=== PATIENT | male | born 1970 | race Caucasian/White ===

== ENCOUNTER 2020-05-17 07:32 | Outpatient (REF) | payer OTHER, SELFPAY ==
[2020-05-17 08:29] LABS: MANUAL DIFF FLAG NO
[2020-05-17 08:34] LABS: Basophils Percent Auto 0.3 % (0-2); Eosinophils Absolute Auto 0.2 X10*3/uL (0.0-0.4); Eosinophils Percent Auto 2.3 % (0-4); Hematocrit 48.4 % (42-52); Hemoglobin 16.3 g/dl (14.0-18.0); Imm Gran Abs Auto 0.02 X10*3/uL (0.00-0.03); Imm Gran Pct Auto 0.3 % (0.0-0.4); Lymphocytes Absolute Auto 1.6 X10*3/uL (1.2-4.9); Lymphocytes Percent Auto 22.1 % (20-40); Mean Corpuscular HGB Conc 33.7 g/dl (31.0-36.0); Mean Corpuscular Hemoglobin 32.9 pg (27.0-33.0); Mean Corpuscular Volume 97.8 fL (80-98); Mean Platelet Volume 12.9 fL (9.4-12.4); Monocytes Absolute Auto 0.8 X10*3/uL (0.1-1.2); Monocytes Percent Auto 10.9 % (2-11); Neutrophils Absolute Auto 4.5 X10*3/uL (2.0-8.3); Neutrophils Percent Auto 64.1 % (45-73); Platelet Count 135 X10*3/uL (160-400); Red Blood Count 4.95 X10*6/uL (4.60-5.80); Red Cell Distribution Width 12.5 % (11.0-16.0); White Blood Count 7.1 X10*3/uL (4.8-10.8)
[2020-05-17 09:04] LABS: Alanine Aminotransferase 14 U/L (0-40); Albumin Level 4.2 g/dL (3.5-5.0); Alkaline Phosphatase 59 U/L (39-117); Anion Gap 13 (12-20); Aspartate Amino Transferase 11 U/L (5-37); Bilirubin Total 0.5 mg/dL (0.0-1.0); Blood Urea Nitrogen 15 mg/dL (9-16); Calcium 9.1 mg/dL (8.4-10.2); Carbon Dioxide 27 mmol/L (22-29); Chloride 107 mmol/L (96-108); Cholesterol 245 mg/dL; Estimated Glomerular Filt Rate > 60; Glucose Fasting 89 mg/dL (60-99); HDL Cholesterol 38 mg/dL; LDL Cholesterol Calculated 183 mg/dl; Potassium 4.6 mmol/l (3.3-5.1); Sodium 142 mmol/L (135-145); Triglycerides 120 mg/dL
== END 2020-05-17 07:33 | disposition home or self-care (01) ==
LOC: HO.LAB 07:32
PROVIDERS: PCP Internal Medicine; Visit Provider Internal Medicine
DX: E78.5 Hyperlipidemia, unspecified (principal)
CPT/HCPCS: 36415; 80053; 80061; 85025

== ENCOUNTER 2020-06-24 21:52 | Emergency (ER) | payer OTHER, SELFPAY ==
--- NOTE | 2020-06-24 | ECG_ITS ---
Test Reason : CHEST PAIN Blood Pressure : / mmHG Vent. Rate : 096 BPM Atrial Rate : 096 BPM P-R Int : 138 ms QRS Dur : 084 ms QT Int : 340 ms P-R-T Axes : 055 -41 018 degrees QTc Int : 429 ms Normal sinus rhythm Left axis deviation Abnormal ECG No previous ECGs available Referred By: Maribeth Garay Electronically Signed By:Toby Tolbert
--- NOTE | ~2020-06-24 | XR_ITS ---
EXAMINATION: XR CHEST CLINICAL INFORMATION: Chest pain. COMPARISON: None TECHNIQUE: Frontal view of the chest was obtained. FINDINGS: The lungs are clear. The cardiomediastinal silhouette is normal in size. There is no pleural effusion or pneumothorax. No acute osseous abnormality. XR/XR chest 1V IMPRESSION: No acute cardiopulmonary findings.
--- NOTE | 2020-06-24 21:55 | ED_ITS ---
HPI - Chest Pain General Chief Complaint: Chest Pain Stated Complaint: Chest Pain Time Seen by Provider: 06/24/20 21:54 Source: patient History of Present Illness HPI narrative: This is a 50-year-old male who presents with sharp left anterior chest pain that has been going on throughout the day, waxing and waning, denies radiation into the back, but states that the last episode occurred approximately 1 hour ago and was associated with radiation into the left arm. Otherwise, he denies association with deep inspiration. This is not been associated with any headache, dizziness, shortness of breath, palpitations, nausea, but he states he did become anxious and was sweaty. Otherwise, patient's past medical history is significant for having had a DVT (provoke) approximately 5 years ago. Patient states he drank alcohol last night but otherwise denies smoking or drug use. No recent history of long car rides or plane trips, hemoptysis, personal history of cancer, recent surgery or bed bound state, calf pain or calf swelling. Related Data Allergies Allergy/AdvReac Type Severity Reaction Status Date / Time No Known Allergies Allergy Verified 06/24/20 22:04 Review of Systems Review of Systems: Pertinent positives and negatives as stated in HPI 10 point review systems is otherwise negative. PMFSH Past Medical History Source: nursing notes reviewed Medical History Hyperlipidemia Social History Social History Advance Directives: No Advance Directives Information Provided: Yes Physical Exam Vital Signs: Vital Signs: Last Vital Signs Temp 98.6 F 06/24/20 22:00 Pulse 82 06/24/20 22:00 Resp 15 06/24/20 22:00 BP 147/84 H 06/24/20 22:00 Pulse Ox 95 06/24/20 22:00 Body Mass Index 31.3 VITAL SIGNS: Reviewed. GENERAL: Well developed, well nourished, in no acute distress. HEAD: Normocephalic/atraumatic, EYES: PERRLA, EOMI OROPHARYNX: no oral lesions noted, posterior pharynx clear NECK: Supple, no adenopathy LUNGS: Normal breath sounds. No adventitious sounds or accessory muscle use. SpO2<95> CARDIOVASCULAR: Regular rate and rhythm without noted murmurs, no JVD or lower extremity edema. ABDOMEN: Soft, non-tender, non-distended with bowel sounds. MUSCULOSKELETAL: No tenderness, deformities, or effusions noted on gross inspection. EXTREMITIES: No cyanosis, clubbing or edema. SKIN: Inspection of the skin reveals no rashes NEUROLOGIC: Alert and oriented x 4. Course Course Course Narrative: This is a 50-year-old male with history and clinical presentation suggestive of gastritis, pancreatitis, musculoskeletal, but doubt cardio pulmonary etiology. All investigations were reviewed and there are no acute findings to better explain patient's presenting symptoms other than possible muscle strain or costochondritis. Although there is a slight bump in the high sensitivity troponin patient has decided that he does not wish to wait for the 2nd troponin and otherwise HEART Score-3. D-dimer is negative as well as no evidence on chest x-ray for acute findings. All results and findings were discussed the patient bedside and he was required to sign out AMA as 2nd troponin was deemed appropriate and recommended him to follow-up with his primary care provider and/or manager operational as appropriate after discussing with his primary care provider. He remains currently asymptomatic. MDM - Chest Pain Lab Data Result diagrams: 06/24/20 22:17 06/24/20 22:17 Labs: Lab Results 06/24/20 06/24/20 06/24/20 Range/Units 22:17 22:17 22:17 WBC 9.5 (4.8-10.8) X10*3/uL RBC 4.87 (4.60-5.80) X10*6/uL Hgb 16.0 (14.0-18.0) g/dl Hct 46.5 (42-52) % MCV 95.5 (80-98) fL MCH 32.9 (27.0-33.0) pg MCHC 34.4 (31.0-36.0) g/dl RDW 12.6 (11.0-16.0) % Plt Count 157 L (160-400) X10*3/uL MPV 11.9 (9.4-12.4) fL Immature Gran % (Auto) 0.2 (0.0-0.4) % Neut % (Auto) 61.9 (45-73) % Lymph % (Auto) 24.6 (20-40) % [place] % (Auto) 11.5 H (2-11) % Eos % (Auto) 1.6 (0-4) % Baso % (Auto) 0.2 (0-2) % Lymph # (Auto) 2.3 (1.2-4.9) X10*3/uL [place] # (Auto) 1.1 (0.1-1.2) X10*3/uL Eos # (Auto) 0.2 (0.0-0.4) X10*3/uL Baso # (Auto) 0.0 (0.0-0.2) X10*3/uL Abs Immat Gran (auto) 0.02 (0.00-0.03) X10*3/uL Absolute Neuts (auto) 5.9 (2.0-8.3) X10*3/uL Absolute Nucleated RBC 0.000 (0.0-0.012) X10*3/uL Nucleated RBC % (auto) 0.0 (0.0-0.2) /100WBC D-Dimer NG/ML Sodium 139 (135-145) mmol/L Potassium 4.1 (3.3-5.1) mmol/L Chloride 106 (96-108) mmol/L Carbon Dioxide 24 (22-29) mmol/L Anion Gap 13 (12-20) BUN 21 H (9-16) mg/dL Creatinine 1.28 (0.5-1.4) mg/dL Estim Creat Clear Calc 73.3 Estimated GFR 59 Random Glucose 97 (60-115) mg/dL Calcium 8.6 (8.4-10.2) mg/dL Total Bilirubin 0.8 (0.0-1.0) mg/dL AST 19 (5-37) U/L ALT 23 (0-40) U/L Alkaline Phosphatase 69 (39-117) U/L Troponin I High Sens 4.2 (<3.5-35.0) ng/L Total Protein 7.2 (6.5-8.0) g/dL Albumin 4.2 (3.5-5.0) g/dL Lipase (8-78) U/L 06/24/20 06/24/20 Range/Units 22:17 22:17 WBC (4.8-10.8) X10*3/uL RBC (4.60-5.80) X10*6/uL Hgb (14.0-18.0) g/dl Hct (42-52) % MCV (80-98) fL MCH (27.0-33.0) pg MCHC (31.0-36.0) g/dl RDW (11.0-16.0) % Plt Count (160-400) X10*3/uL MPV (9.4-12.4) fL Immature Gran % (Auto) (0.0-0.4) % Neut % (Auto) (45-73) % Lymph % (Auto) (20-40) % [place] % (Auto) (2-11) % Eos % (Auto) (0-4) % Baso % (Auto) (0-2) % Lymph # (Auto) (1.2-4.9) X10*3/uL [place] # (Auto) (0.1-1.2) X10*3/uL Eos # (Auto) (0.0-0.4) X10*3/uL Baso # (Auto) (0.0-0.2) X10*3/uL Abs Immat Gran (auto) (0.00-0.03) X10*3/uL Absolute Neuts (auto) (2.0-8.3) X10*3/uL Absolute Nucleated RBC (0.0-0.012) X10*3/uL Nucleated RBC % (auto) (0.0-0.2) /100WBC D-Dimer < 200 NG/ML Sodium (135-145) mmol/L Potassium (3.3-5.1) mmol/L Chloride (96-108) mmol/L Carbon Dioxide (22-29) mmol/L Anion Gap (12-20) BUN (9-16) mg/dL Creatinine (0.5-1.4) mg/dL Estim Creat Clear Calc Estimated GFR Random Glucose (60-115) mg/dL Calcium (8.4-10.2) mg/dL Total Bilirubin (0.0-1.0) mg/dL AST (5-37) U/L ALT (0-40) U/L Alkaline Phosphatase (39-117) U/L Troponin I High Sens (<3.5-35.0) ng/L Total Protein (6.5-8.0) g/dL Albumin (3.5-5.0) g/dL Lipase 23 (8-78) U/L ECG Data ECG #1: Attestation: I personally reviewed and interpreted this ECG as follows: Prior ECG tracings: not available for review Interpretation: Normal sinus rhythm, HR-96, no evidence of acute ischemia, [place]/QRS/QTC are within normal limits. Discharge Plan Discharge Clinical Impression: Atypical chest pain Patient Disposition: Home, Self-Care Instructions: Chest Pain (ED), Chest Wall Pain (ED) Additional Instructions: Please do not hesitate to return to the emergency department should you experience acute worsening of your symptoms especially if associated with any shortness of breath, dizziness, nausea, sweating. Follow-up with the primary care provider in 2-3 days. Referrals: Erlin Mishra MD [Primary Care Provider] - 2 days (Re-evaluation and management after seen in the emergency department for left-sided chest pain.) Stand Alone Forms: Against Medical Advice
[2020-06-24 22:00] VITALS: BP 147/84; BP 147/87; PULSE 82; PULSE 88; RESP 15; RESP 16; TEMP 37; TEMP 37.1; O2SAT 95; BMI 31.3
[2020-06-24 22:23] LABS: MANUAL DIFF FLAG NO
[2020-06-24 22:28] LABS: Basophils Percent Auto 0.2 % (0-2); Eosinophils Absolute Auto 0.2 X10*3/uL (0.0-0.4); Eosinophils Percent Auto 1.6 % (0-4); Hematocrit 46.5 % (42-52); Imm Gran Abs Auto 0.02 X10*3/uL (0.00-0.03); Imm Gran Pct Auto 0.2 % (0.0-0.4); Lymphocytes Absolute Auto 2.3 X10*3/uL (1.2-4.9); Lymphocytes Percent Auto 24.6 % (20-40); Mean Corpuscular HGB Conc 34.4 g/dl (31.0-36.0); Mean Corpuscular Hemoglobin 32.9 pg (27.0-33.0); Mean Corpuscular Volume 95.5 fL (80-98); Mean Platelet Volume 11.9 fL (9.4-12.4); Monocytes Absolute Auto 1.1 X10*3/uL (0.1-1.2); Monocytes Percent Auto 11.5 % (2-11); Neutrophils Absolute Auto 5.9 X10*3/uL (2.0-8.3); Neutrophils Percent Auto 61.9 % (45-73); Platelet Count 157 X10*3/uL (160-400); Red Blood Count 4.87 X10*6/uL (4.60-5.80); Red Cell Distribution Width 12.6 % (11.0-16.0); White Blood Count 9.5 X10*3/uL (4.8-10.8)
[2020-06-24 22:46] LABS: D Dimer < 200 NG/ML
[2020-06-24 22:47] LABS: Lipase 23 U/L (8-78)
[2020-06-24 22:51] LABS: Alanine Aminotransferase 23 U/L (0-40); Albumin Level 4.2 g/dL (3.5-5.0); Alkaline Phosphatase 69 U/L (39-117); Anion Gap 13 (12-20); Aspartate Amino Transferase 19 U/L (5-37); Bilirubin Total 0.8 mg/dL (0.0-1.0); Blood Urea Nitrogen 21 mg/dL (9-16); Calcium 8.6 mg/dL (8.4-10.2); Carbon Dioxide 24 mmol/L (22-29); Chloride 106 mmol/L (96-108); Creatinine Clr Calc Pharmacy 73.3; Estimated Glomerular Filt Rate 59; Glucose Random 97 mg/dL (60-115); Potassium 4.1 mmol/L (3.3-5.1); Sodium 139 mmol/L (135-145); Total Protein 7.2 g/dL (6.5-8.0)
[2020-06-24 23:07] LABS: Troponin-I High Sensitivity 4.2 ng/L (<3.5-35.0)
== END 2020-06-25 00:24 | disposition home or self-care (01) ==
PROVIDERS: Emergency Provider Student in an Organized Health Care Education/Training Program; PCP Internal Medicine
DX: R07.9 Chest pain, unspecified (principal); M54.5 Low back pain; M79.602 Pain in left arm; Z79.899 Other long term (current) drug therapy
CPT/HCPCS: 36415; 71045; 80053; 83690; 84484; 85025; 85379; 93005; 99283

== ENCOUNTER 2020-11-02 10:28 | Day surgery (SDC) | payer OTHER, SELFPAY ==
[2020-11-02 10:37] VITALS: BMI 31.3
[2020-11-02 10:43] VITALS: BP 133/87; PULSE 74; RESP 16; TEMP 36.6; O2SAT 97
--- NOTE | 2020-11-02 11:14 | HO.ANESPROP2 ---
HPI - Anesthesia Eval Consult details Narrative: 50 year old patient for colonoscopy PMFSH Active Problems Active Problems: All Active Problems (Updated 05/28/20 @ 10:59 by Erlin Mishra MD) Hyperlipidemia (Acute) Allergic reaction (Acute) Past Medical History Medical History (Updated 11/02/20 @ 11:27 by Sarah Cassidy) Hyperlipidemia Family History Family History Father Gastric cancer Mother Heart disease Family/Other Colon cancer Family history of problems with anesthesia: No Surgical History Surgical History (Updated 11/02/20 @ 11:28 by Sarah Cassidy) No pertinent past surgical history S/P colonoscopy History of Problems with Anesthesia: No Social History Social History (Updated 11/02/20 @ 11:25 by Sarah Cassidy) Alcohol intake: current Alcohol intake frequency: does not drink Patient Tobacco Use Status: Former Tobacco user Quit Date: Has a script for Chantix but does not use Second Hand Smoke Exposure: No Use of substances other than those prescribed or required for medical reasons: No Are you DNR?: No Advance Directives: No Advance Directives Information Provided: Yes Advance Directives on File: No Poor oral hygiene: No Meds Allergies Allergy/AdvReac Type Severity Reaction Status Date / Time No Known Allergies Allergy Verified 05/28/20 10:27 [No Known Allergies*] Active Medications: Current Medications Generic Name Dose Route Start Last Admin Trade Name Freq PRN Reason Stop Dose Admin Lactated Ringer's 1,000 mls @ 100 mls/hr 11/02/20 11:15 Lr IVCONT .Q10H [facility] Home Medications Medication Instructions Recorded Confirmed Last Taken Type varenicline 1 mg tablet 1 mg PO BID 02/21/20 05/28/20 Unknown History Exam Exam Date and Time: November 02, 2020 1114 Height,Weight and Vital Signs: Height 5 ft 7 in Weight 90.718 kg Last Vital Signs Temp 97.9 F 11/02/20 10:43 Pulse 74 11/02/20 10:43 Resp 16 11/02/20 10:43 BP 133/87 11/02/20 10:43 Pulse Ox 97 11/02/20 10:43 Airway Mallampati Class: II TM Dist: >3cm Neck ROM: Full Heart: RRR Lungs: CTAB Assessment and Plan Assessment Anesthesia Assessment: Anesthesia Plan Discussed and Chart Reviewed Final Anesthetic Review NPO: Yes ASA Class: II Final Preanesthetic Review: No Changes in Pt Med Stat, Meds/Allgs Chart Reviewed, Consent Obtained/Reviewed and Anes Risks/Benef Reviewed Patient Risk: Low Procedure Risk: Low Assessment/Block/Sedation in SS: Assess/Block/Sedation-SS Anesthetic Plan Anesthetic Plan: MAC: Disposition: Standard PACU
--- NOTE | 2020-11-02 11:43 | MHC.SHP ---
Pre-Procedural Eval Section A Date of Service: 11/02/20 The patient is an INPATIENT: No Changes since office visit: No Cold of Flu in the past 2 weeks, No New Medical Problems, No Changes in Medication and No Patient answered all questions The History & Physical has been completed within 30 days and I have reviewed it.: No Section B Chief Complaint: screening Allergies: Allergies Allergy/AdvReac Type Severity Reaction Status Date / Time No Known Allergies Allergy Verified 05/28/20 10:27 [No Known Allergies*] Plan I have reviewed the history and physical and performed a pertinent physical examination on my patient. No changes have occurred unless specified.
--- NOTE | 2020-11-02 12:07 | PM.OP ---
Brief Operative Note Date of Service: 11/02/20 Pre-op diagnosis: screening Post-op diagnosis: same (colon polyps) Procedure: colonosocpy Surgeon: Boris Chand Anesthesia: MAC Was an [employer] Court Judge used for this Procedure?: No Estimated blood loss (mL): 0 Pathology: other (polyps x2) Condition: stable Disposition: PACU
[2020-11-02 12:11] VITALS: BP 102/55; PULSE 85; RESP 16; TEMP 36.3; O2SAT 96
[2020-11-02 12:26] VITALS: BP 114/74; PULSE 77; RESP 17; O2SAT 93
--- NOTE | 2020-11-02 14:51 | OP_ITS ---
SURGEON: Boris Chand MD INDICATIONS: Colon cancer screening and family history of colon cancer. PREOPERATIVE DIAGNOSIS: POSTOPERATIVE DIAGNOSIS: PROCEDURE PERFORMED: Colonoscopy to the terminal ileum with snare polypectomy. ESTIMATED BLOOD LOSS: COMPLICATIONS: ANESTHESIA: Monitored anesthesia care. ASSISTANTS: SPECIMENS: DESCRIPTION OF PROCEDURE: History and physical was performed. The risks and benefits of the procedure were explained to the patient, and informed consent was obtained. The patient was placed in left lateral decubitus position. A digital rectal exam was performed and it was found to be normal. The Olympus pediatric video colonoscope was introduced into the rectum and advanced to the cecum without difficulty. The cecum was identified by transillumination, palpation, and identification of ileocecal valve. Examination was performed. The scope was removed. He tolerated the procedure well and was taken to the recovery area in stable condition. FINDINGS: The terminal ileum was normal. The visualized colonic mucosa was within normal limits without evidence of masses or ulcers. Two polyps were identified, both measured approximately 7 mm and removed with a snare. These were located at 40 cm and 50 cm. No other polyps were identified. The quality of the prep was good. Retroflexed examination was normal. IMPRESSION: Colon polyps. RECOMMENDATIONS: Follow up the biopsy results. MD SAMMI Lamas/STEVE / [id number]
== END 2020-11-02 13:21 | disposition home or self-care (01) ==
PROVIDERS: PCP Internal Medicine; Visit Provider Internal Medicine Gastroenterology
PROC: 0DJD8ZZ Inspection of Lower Intestinal Tract, Via Natural or Artificial Opening Endoscopic (ICD-10-PCS; CPT 45378; principal; 2020-11-02 11:20)
DX: Z12.11 Encounter for screening for malignant neoplasm of colon (principal); Z80.0 Family history of malignant neoplasm of digestive organs; D12.5 Benign neoplasm of sigmoid colon; E78.5 Hyperlipidemia, unspecified; G47.30 Sleep apnea, unspecified; Z79.1 Long term (current) use of non-steroidal anti-inflammatories (NSAID); Z79.899 Other long term (current) drug therapy; Z87.891 Personal history of nicotine dependence
CPT/HCPCS: 45385; 88305

== ENCOUNTER 2021-05-07 14:40 | Outpatient (REF) | payer OTHER, SELFPAY | END 2021-05-07 14:41 | disposition home or self-care (01) | LOC: HO.HMGCLDS 14:40 | PROVIDERS: Visit Provider Internal Medicine | DX: Z20.822 Contact with and (suspected) exposure to COVID-19 (principal) | CPT/HCPCS: C9803; U0003; U0005 ==

== ENCOUNTER → 2021-08-07 12:46 | Outpatient (BNVA) | payer OTHER, SELFPAY | PROVIDERS: PCP Internal Medicine; Referring Provider Internal Medicine; Visit Provider Internal Medicine | DX: R03.0 Elevated blood-pressure reading, without diagnosis of hypertension (principal); E66.9 Obesity, unspecified; Z82.49 Family history of ischemic heart disease and other diseases of the circulatory system | CPT/HCPCS: 93005 ==

== ENCOUNTER → 2021-09-30 08:09 | Outpatient (BNVA) | payer OTHER, SELFPAY | PROVIDERS: PCP Internal Medicine; Referring Provider Internal Medicine; Visit Provider Internal Medicine | DX: E66.9 Obesity, unspecified (principal) ==

== ENCOUNTER 2021-10-01 20:36 | Emergency (ER) | payer OTHER, SELFPAY ==
--- NOTE | ~2021-10-01 | XR_ITS ---
EXAMINATION: XR HAND, LEFT CLINICAL INFORMATION: Laceration to the hand. Concern for foreign body. COMPARISON: None TECHNIQUE: PA, lateral, and oblique views of the left hand. FINDINGS: There is air in the soft tissues of the hand. Most of the air is within the dorsum of the hand extending into the interosseous spaces between the metacarpals. No radiopaque foreign body. No fracture or dislocation. XR/XR hand LT min 3V IMPRESSION: Air in the soft tissues of the hand but no radiopaque foreign body.
[2021-10-01 21:51] VITALS: BP 143/86; PULSE 66; RESP 16; TEMP 36.5; O2SAT 95; BMI 32.5
[2021-10-01] MEDS: Ibuprofen 600 MG TABLET PO (22:05)
--- NOTE | 2021-10-01 23:15 | ED.WOUNDLAC ---
HPI - Wound/Laceration General Chief Complaint: Wound/Laceration Stated Complaint: Hand Lac Time Seen by Provider: 10/01/21 22:52 Source: patient Mode of arrival: ambulatory Limitations: no limitations History of Present Illness HPI narrative: 51-year-old male no significant medical history presents to the emergency department complaints of a laceration to the dorsal aspect of left hand that occurred at approximately 19:00 he tells me that he has a sane this injury while [place] washing, he tells me he was power washing and then also the power wash went into his hand. He complains of 7/10 left hand pain. He does not complain of pain with range of motion to wrist or fingers. Denies numbness or tingling. He tells me he does not recall the last time he had a tetanus shot. Patient is right-hand dominant. Onset (ago): hour(s) (4) Location: other (hand ) Place: home Patient tetanus UTD: No Context: accidental Associated symptoms: pain Treatments prior to arrival: bandage Related Data Previous Rx's Medication Instructions Recorded lorazepam 0.5 mg tablet 0.5 mg PO TID PRN #90 tab 05/29/21 rosuvastatin 20 mg tablet (Crestor) 20 mg PO DAILY #90 tab 09/30/21 amoxicillin 875 mg-potassium 1 tab PO BID 7 Days #14 tab 10/01/21 clavulanate 125 mg tablet Allergies Allergy/AdvReac Type Severity Reaction Status Date / Time No Known Allergies Allergy Verified 09/30/21 08:20 [No Known Allergies*] Review of Systems Review of Systems: Constitutional : No Fever, No Chills, Cardiovascular : No Chest Pain, No SOB Respiratory : No Dyspnea Gastrointestinal : No abdominal pain Musculoskeletal : No Joint Swelling Skin : No rash, positive skin laceration Neuro : No Weakness, No Numbness Psych : No SI/HI Yes all other systems are reviewed and are negative [facility] Past Medical History Attestation statement: The following information was validated with the patient. Source: old records reviewed and nursing notes reviewed Medical History Atherosclerotic cardiovascular disease Hyperlipidemia Hyperlipidemia Obesity Sleep apnea Surgical History No pertinent past surgical history S/P colonoscopy Family History Family History Father Gastric cancer Heart attack Colon cancer Mother Heart disease Brother Heart attack Social History Social History Housing: House Alcohol intake: current Alcohol intake frequency: does not drink Patient Tobacco Use Status: Former Tobacco user Quit Date: Has a script for Chantix but does not use e-Cigarette/Vaping Use: Never Used Second Hand Smoke Exposure: No Current occupational status: employed Cognitive needs: No Hearing needs: No Vision needs: No Physical Exam Vital Signs: Vital Signs: Last Vital Signs Temp 97.7 F 10/01/21 21:51 Pulse 66 10/01/21 21:51 Resp 16 10/01/21 21:51 BP 143/86 H 10/01/21 21:51 Pulse Ox 95 10/01/21 21:51 BMI result Body Mass Index 32.5 Vital signs stable Appearance: Alert.? Oriented X3.? No acute distress.? Head: Normocephalic, atraumatic, no step-offs or deformities Eyes: Pupils equal, round and reactive to light.?? Neck: Normal inspection.? Neck supple.? CVS: Normal heart rate and rhythm.? Pulses normal.? Respiratory: No respiratory distress.? Breath sounds normal.? Abdomen: Soft and nontender.? Skin: Skin warm and dry.? Normal skin color.? Normal skin turgor.?+ irregularly shaped laceration to the dorsal aspect of left hand. Extremities: No lower extremity edema.? No calf ttp. 5/5 strength to bilateral upper and lower extremities 2+ radial pulses equal bilateral, no wrist drop, patient able to make a fist bilaterally, full range of motion to all fingers, capillary refill less than 2 seconds equal bilateral to all upper extremity digits. Sensory and motor intact. Neuro: Oriented X 3.? No motor deficit.? No sensory deficit. CN 2-12 intact Course Reevaluation(s) Reevaluation #1: Successfully placed 250 sutures to the dorsal aspect of the hand. X-ray of the left hand with air in the soft tissue of the hand but no radiopaque foreign bodies. I will have patient follow-up with orthopedics. Advised him to return with new or worsening symptoms outlined he is on his discharge comfortable with discharge home with p.o. antibiotics. 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 Not up-to-date on tetanus shot. Physical examination significant for an irregularly shaped laceration to the dorsal aspect of left hand, images in chart. Neurovascularly intact, normal capillary refill 2+ radial pulses equal bilateral. Full range of motion to all digits, wrist. Sensory and motor intact. Able to make fist bilaterally. Plan at this time is imaging, and suturing of the laceration. Medical Records Attestation: I reviewed the patient's medical records. Lab Data Attestation: I reviewed the patient's lab results. Procedures Laceration Laceration 1: Site: upper extremity Side (If applicable): left Size (cm): 4 Description: linear Depth: simple, single layer Local Anesthetic: lidocaine 1% Amount of anesthesia used (mL): 5 Pre-repair: wound explored, irrigated extensively and deep structures intact Skin layer closed with: vicryl Size (cm): 5-0 Number of sutures: 2 Technique: simple, interrupted Critical Care Time Critical Care Time Critical Care Time: No Discharge Plan Discharge Clinical Impression: Laceration Patient Disposition: Home, Self-Care Additional Instructions: Take your medications as prescribed. If you were prescribed antibiotics today, it is important that you take your medication to their entirety, do not skip any doses, do not finish them early. Follow-up with your primary care provider this week. Follow-up with orthopedics as needed. Return to the emergency department with new or worsening symptoms. Such as fevers, chills, chest pain, shortness of breath, nausea, vomiting, dizziness, headache, vision changes, lethargy, worsening redness or swelling or discharge from the area, numbness, tingling, inability to make a fist. In case of emergency call 911 Return in 7-10 days for suture removal. XR/XR hand LT min 3V IMPRESSION: Air in the soft tissues of the hand but no radiopaque foreign body. Prescriptions: New amoxicillin-pot clavulanate 875-125 mg tablet 1 tab PO BID 7 Days Qty: 14 0RF No Action lorazepam 0.5 mg tablet 0.5 mg PO TID PRN (Reason: anxiety) Qty: 90 5RF rosuvastatin [Crestor] 20 mg tablet 20 mg PO DAILY Qty: 90 3RF Referrals: [facility] [place]Provider Group] - 1 week Erlin Mishra MD [Primary Care Provider] - 2 days Stand Alone Forms: Work/School Release
[2021-10-01] MEDS: Diphth,Pertus(ACell),Tet Adult 0.5 ML SYRINGE IM (23:28)
[2021-10-01] MEDS: Amoxicillin/Potassium Clav 875 MG TABLET PO (23:28)
[2021-10-01] MEDS: Lidocaine HCl 2 % MPF 5 ML VIAL SUBCUT (23:32)
== END 2021-10-02 00:14 | disposition home or self-care (01) ==
LOC: HO.ED 23:54
PROVIDERS: Emergency Provider Emergency Medicine; PCP Internal Medicine
DX: S61.412A Laceration without foreign body of left hand, initial encounter (principal); S60.512A Abrasion of left hand, initial encounter; Y29.XXXA Contact with blunt object, undetermined intent, initial encounter; Y93.9 Activity, unspecified; Y92.9 Unspecified place or not applicable; Y99.9 Unspecified external cause status; Z87.891 Personal history of nicotine dependence
CPT/HCPCS: 12002; 73130; 90471; 90715; 99282; 99284

== ENCOUNTER → 2021-10-15 14:26 | Outpatient (BNVA) | payer OTHER, SELFPAY | PROVIDERS: PCP Internal Medicine; Visit Provider Physician Assistant | DX: S61.412A Laceration without foreign body of left hand, initial encounter (principal) ==

== ENCOUNTER → 2021-10-30 09:29 | Outpatient (REF) | payer OTHER, SELFPAY ==
--- NOTE | ~2021-10-30 | NM_ITS ---
Exercise Myocardial perfusion study Indication: Elevated coronary calcium score suggestion of atherosclerotic heart disease to evaluate for myocardial ischemia Technique: The patient was brought in for an exercise perfusion study on 10/30/2021. Patient performed exercise as per Tony protocol and was injected 30 mCi of sestamibi was given intravenously one target HR was achieved. Images were obtained using the SPECT gamma camera interlaced with the gating device. Images were obtained in supine position. Resting perfusion study was performed on 10/31/2021. Patient was administered 30 mCi of sestamibi intravenously at rest. Images were then obtained in supine position. Images obtained with and without CT attenuation. Total DLP 99 mGy-cm. Images were processed with the software and compared side to side in short axis, horizontal long axis and vertical long axis views. Findings: The stress perfusion study showed non attenuated images show moderately reduced uptake in the basal inferior and thinning of the mid and apical inferior wall of the LV myocardium. Is also thinning of inferolateral wall of the LV myocardium. Attenuation corrected images show mildly reduced uptake in the apex of the LV myocardium.. The gated study shows normal LV systolic function with calculated LVEF of 55%. LV cavity is mildly dilated in size. The gated study shows normal systolic wall thickening and contraction of all segments. There is no transient ischemic dilation. Resting study shows non attenuated images show some thinning of the basal inferior wall of the LV myocardium. Otherwise normal uptake of radiotracer in all segments of LV myocardium. Attenuation corrected images show mildly reduced uptake in the apex of the LV myocardium. Gating at rest reveals normal systolic wall motion with ejection fraction at 63%. The findings are consistent with no clear reversible defect on attenuated corrected images. Non attenuated images show ischemic defect of the basal inferior wall. This could be due to attenuation artifact. NM/NM cardiolite stress test Impression: 1. Likely normal myocardial perfusion 2. Gated LVEF is 55% 3. Transient ischemic dilatation not present Stress EKG is negative for ischemia
--- NOTE | 2021-10-30 09:33 | CA_ITS ---
Acquisition Time: 2021-10-30 09:38:25 Total Exercise Time: 00:10:00 Test Indications: CAD Medications: SEE CHART Protocol: SELAM Max HR: 155 BPM 92% of Pred: 168 BPM Max BP: 210/088 mmHG Max Work Load: 11.6 METS Exercise stress test with exercise 10 min of Selam protocol, achieving 92% MPHR, without anginal symptoms, without arrythmia, with hypertensive response to exercise with max [employer] 210/88, without EKG changes meeting criteria for ischemia. In recovery his BP returned to baseline. Nuclear images pending. Test reviewed with Dr Lagunas Referred By: Johnson Chin Overread By: AKASH JAVIER
== END ==
LOC: HO.CARD 09:29
PROVIDERS: PCP Internal Medicine; Visit Provider Internal Medicine
DX: I25.10 Atherosclerotic heart disease of native coronary artery without angina pectoris (principal)
CPT/HCPCS: 78452; 93017; A9500

== ENCOUNTER → 2022-07-07 14:05 | Outpatient (BNVA) | payer OTHER, SELFPAY | PROVIDERS: PCP Internal Medicine; Referring Provider Internal Medicine; Visit Provider Internal Medicine | DX: I25.10 Atherosclerotic heart disease of native coronary artery without angina pectoris (principal); R03.0 Elevated blood-pressure reading, without diagnosis of hypertension; E66.9 Obesity, unspecified; E78.49 Other hyperlipidemia | CPT/HCPCS: 93005 ==

== ENCOUNTER 2022-09-02 07:14 | Outpatient (REF) | payer OTHER, SELFPAY ==
--- NOTE | ~2022-09-02 | XR_ITS ---
EXAMINATION: XR SHOULDERS, BILATERAL CLINICAL INFORMATION: Bilateral shoulder pain. COMPARISON: 01/30/2015 and 01/04/2015. TECHNIQUE: 4 views of the right shoulder and 3 views of the left shoulder. FINDINGS: Right Shoulder: There is no evidence of acute fracture or dislocation of the right shoulder. Glenohumeral joint demonstrates some mild spurring without joint space narrowing. There is calcific tendinitis present about the greater tuberosity. There is some mild degenerative change involving the right acromioclavicular joint. No widening of the coracoclavicular space is seen. Left Shoulder: There is no evidence of acute fracture or dislocation of the left shoulder. Minimal spurring is seen about the inferior aspect of the glenohumeral joint. Calcific tendinitis is present. No widening of the coracoclavicular space is seen. XR/XR shoulder RT min 2V IMPRESSION: Bilateral calcific tendinitis of the shoulders.
--- NOTE | ~2022-09-02 | XR_ITS ---
EXAMINATION: XR SHOULDERS, BILATERAL CLINICAL INFORMATION: Bilateral shoulder pain. COMPARISON: 01/30/2015 and 01/04/2015. TECHNIQUE: 4 views of the right shoulder and 3 views of the left shoulder. FINDINGS: Right Shoulder: There is no evidence of acute fracture or dislocation of the right shoulder. Glenohumeral joint demonstrates some mild spurring without joint space narrowing. There is calcific tendinitis present about the greater tuberosity. There is some mild degenerative change involving the right acromioclavicular joint. No widening of the coracoclavicular space is seen. Left Shoulder: There is no evidence of acute fracture or dislocation of the left shoulder. Minimal spurring is seen about the inferior aspect of the glenohumeral joint. Calcific tendinitis is present. No widening of the coracoclavicular space is seen. XR/XR shoulder LT min 2V IMPRESSION: Bilateral calcific tendinitis of the shoulders.
== END 2022-09-02 07:15 | disposition home or self-care (01) ==
LOC: HO.HOSX 07:14
PROVIDERS: Visit Provider Physician Assistant
DX: M75.31 Calcific tendinitis of right shoulder (principal); M75.32 Calcific tendinitis of left shoulder
CPT/HCPCS: 20610; 73030; J1040

== ENCOUNTER 2023-02-03 07:00 | Outpatient (RCR) | payer OTHER, SELFPAY ==
--- NOTE | 2023-01-13 12:49 | MHC.PT.EP ---
[facility] [place] Office [place] Office [place] Office [address] Connor Wong [address] [phone] F: [phone] F: [phone] F: [phone] F: [phone] Physical Therapy Plan of Care Date of Evaluation: 01/13/23 Date of Surgery: Diagnosis: CALCIFIC TENDONITIS ROSARIO SH Assessment: 52 YO MALE REF TO PT W ROSARIO CALCIFIC TENDINITIS ROSARIO SH- HE HAS A H/O PRIOR Rt BICEP INJURY. THE Pt IS RIGHT HAND DOMINANT AND IS LIMITED W SLEEPING (IN SL), LIFTING OBJECTS, AND PUSHING TASKS. OBJECTIVELY, THE Pt HAS DECR POSTURAL AWARENESS (TIGHT PECT), ROSARIO POST RC/ SCAP MM WEAKNESS, LIMITED AROM ROSARIO SH IR AND ABD; (+) ROSARIO NEER'S/ SPEEDS TESTS, AND (+) SOFT TISSUE IRRIT ROSARIO ANT GH. HE HAS MODIFIED HIS ACTIVITY LEVEL DUE TO HIS ROSARIO SH PAIN. THE Pt WOULD BENEFIT FROM PT TO ADDRESS THE ABOVE FINDINGS AND DEV A HEP SELF-SX MGMT PGM TO IMPROVE POSTURE. Frequency and Duration: The patient will be seen 2 x WK x 5 WKS Short Term Goals: *Pt INDEP W SELF-CORRECT POSTURE TO REDUCE ROSARIO ANT SH PAIN *DECR SH PAIN TO 2-3/10 W ADLs *ACTIVATE POST RC/ SCAP MM INCR END AROM ROSARIO SH (FE, IR POST, ABD) *(-) NEER'S/ SPEED'S TESTS ROSARIO SH Shelter Goals: *Pt ABLE TO SLEEP COMFORTABLY W/O SH PAIN INTERRUPTIONS *ROSARIO SH AND SCAP STRENGTH INCR BY 1/2 TO 1 GRADE *Pt INDEP W PROGR HEP AND SELF-SX MGMT TECHN ADDRESSING SOFT TISSUE TENSION WELL POST RC/ SCAP STRENGTH *Pt RESUME REG ADLs / EXER EVIDENT W Pt'S SPADI SCORE IMPROVEMENT BY 8-10 POINTS (AT EVAL 80/130) Treatment Plan: Modalities to reduce pain, spasms and effusion. Manual therapy to restore motion and function. Therapeutic exercise to improve strength and flexibility. Neuromuscular re-education for posture and balance. Therapeutic activities to return to functional activities of daily living. Electronically signed by: LUIS FITCH,PT Please sign and return to therapist. Thank you for your referral.
--- NOTE | 2023-03-09 08:51 | MHC.PT.DC ---
[facility] [place] Office [place] Office [place] Office [address] Connor Wong [address] [phone] F: [phone] F: [phone] F: [phone] F: [phone] Physical Therapy Discharge Report Diagnosis: CALCIFIC TENDONITIS ROSARIO SH Date of Surgery: Date of Evaluation: 01/13/23 Date of Discharge: 03/09/23 Treatments to Date: 5 Cancellations to Date: 2 No Shows to Date: 0 Discharge Status: Improved Function Patient Elected to Stop Discharge Summary: THE Pt BENEFITTED FROM SOFT TISSUE WORK AND POSTURAL EDUC TO REDUCE STRESSS TO HIS CERVICAL REGION AND ADDRESS HIS SH SXS-> WE DEV A HEP TO ACTIVATE HIS POST RC AND SCAPULAR MM WHILE EASING CERVICAL SXS. THE Pt DID NOT MEET ALL OF HIS PT GOALS AND A REASSESSMENT WAS NOT PERF A HE CANC HIS LAST FEW PT APPTS. Electronically signed by: LUIS FITCH,PT Please sign and return to therapist. Thank you for your referral.
== END 2023-03-09 08:51 | disposition home or self-care (01) ==
LOC: HO.PT 07:00
PROVIDERS: PCP Internal Medicine; Visit Provider Physician Assistant
DX: M75.32 Calcific tendinitis of left shoulder (principal); M75.31 Calcific tendinitis of right shoulder
CPT/HCPCS: 97035; 97110; 97140; 97162; 97530

== ENCOUNTER 2023-04-17 06:33 | Outpatient (REF) | payer OTHER, SELFPAY ==
[2023-04-17 08:42] LABS: Alanine Aminotransferase 42 U/L (0-40); Albumin Level 4.3 g/dL (3.5-5.0); Alkaline Phosphatase 65 U/L (39-117); Aspartate Amino Transferase 22 U/L (5-37); Bilirubin Direct 0.1 mg/dL (0.0-0.5); Bilirubin Total 0.4 mg/dL (0.0-1.0); Cholesterol 229 mg/dL (<200); HDL Cholesterol 42 mg/dL (>40); LDL Cholesterol Calculated 160 mg/dL (<100); Total Protein 7.6 g/dL (6.5-8.0); Triglycerides 135 mg/dL (<150)
== END 2023-04-17 06:34 | disposition home or self-care (01) ==
LOC: HO.LAB 06:33
PROVIDERS: PCP Internal Medicine; Visit Provider Internal Medicine
DX: I25.10 Atherosclerotic heart disease of native coronary artery without angina pectoris (principal)
CPT/HCPCS: 36415; 80061; 80076

== ENCOUNTER 2023-04-22 10:42 | Outpatient (AMB) | payer OTHER, SELFPAY ==
[2023-04-22 10:52] VITALS: BP 144/82; PULSE 66; BMI 33.1
--- NOTE | 2023-04-22 10:52 | MHC.OFFVIS ---
Intake Vital Signs 04/22/23 10:52 Height 5 ft 7 in Weight 211 lb 10.3 oz BMI 33.1 BP 144/82 H Blood Pressure Location Lt brachial Position Sitting Pulse 66 Intake Visit Reasons: 6 month F/U Intake Note: 6 month follow up Medical Massage Therapist Required: No Allergies No Known Allergies [No Known Allergies*] Allergy (Verified 04/22/23 10:53) Medication List - Last Reconciled 04/22/23 by Johnson Chin MD lorazepam 0.5 mg PO TID PRN rosuvastatin 20 mg PO DAILY HPI HPI Comments History of Present Illness Details Richy returns for follow-up. Due to strong family history of coronary disease, he underwent calcium scoring CT scan which was positive. From cardiac, no new issues. Doing fine. [facility] Medical History Atherosclerotic cardiovascular disease Hyperlipidemia Hyperlipidemia Obesity Sleep apnea Surgical History No pertinent past surgical history S/P colonoscopy Family History Father Gastric cancer Heart attack Colon cancer Mother Heart disease Brother Heart attack Social History Housing: House Alcohol intake: current Alcohol intake frequency: a few times a month Patient Tobacco Use Status: Former Tobacco user Quit Date: Has a script for Chantix but does not use e-Cigarette/Vaping Use: Never Used Second Hand Smoke Exposure: No service: No Current occupational status: employed 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, [employer] Cognitive needs: No Hearing needs: No Vision needs: Yes (glasses) Review of Systems Const Denies weakness ENT Denies dizziness Card Denies chest pain, Denies chest pain with activity, Denies syncope, Denies rapid heart rate, Denies pedal edema, Denies edema, Denies leg edema, Denies lightheadedness, Denies palpitations, Denies dyspnea, Denies dyspnea on exertion and Denies orthopnea Resp Denies cough, Denies dyspnea and Denies dyspnea on exertion GI Denies hematochezia and Denies change in stool character Musc Denies abnormal gait, Denies muscle cramps, Denies muscle weakness, Denies numbness, Denies radiating pain into limb and Denies tingling Neuro Denies abnormal gait, Denies dizziness, Denies syncope, Denies numbness, Denies tingling and Denies weakness Endo Denies palpitations Physical Exam Vital Signs: Last Vital Signs Pulse 66 04/22/23 10:52 BP 144/82 H 04/22/23 10:52 BMI result Body Mass Index 33.1 Const General: comfortable and no acute distress Orientation/consciousness: patient oriented x3 HEENT Other: Unremarkable Head: Yes normal to inspection Neck Neck: Yes normal visual inspection Chest Chest palpation & inspection: normal inspection of the chest Resp Auscultation: clear to auscultation bilaterally Cardio Palpation: normal PMI Heart sounds: S1 normal heart sound present, S2 normal heart sound present, no gallops, no murmurs and no rubs GI Palpation (GI): Soft to palpation Back/Spine/Pelvis Other: unremarkable Skin General skin exam: no rashes or lesions noted Neuro General: patient oriented x3 Extrem General: Yes normal to inspection Psych Mental Status: mental status grossly normal Assessment & Plan Assessment & Plan (1) Atherosclerotic cardiovascular disease: Code(s): I25.10 - Atherosclerotic heart disease of council coronary artery without angina pectoris (2) Essential hypertension: Code(s): I10 - Essential (primary) hypertension (3) Hyperlipidemia: Code(s): E78.5 - Hyperlipidemia, unspecified Qualifiers: Hyperlipidemia type: other hyperlipidemia Qualified Code(s): E78.49 - Other hyperlipidemia (4) Obesity (BMI 30.0-34.9): Code(s): E66.9 - Obesity, unspecified Plan Cardiac testing reviewed. Calcium scoring CT - Total score is 292, and calcific plaque is seen in circumflex most predominantly, but also seen in the LAD and right coronary artery. In the exercise stress test, he was able to exercise for 10 minutes on Tony protocol and reached 92% of max predicted heart rate. No angina or EKG evidence of ischemia. He had a hypertensive blood pressure response. Perfusion imaging unremarkable. Overall, evidence of coronary disease but stable. Continue appropriate risk factor modification. Blood pressure is running high. We can start him on some amlodipine 5 mg daily. Advised him to do home blood pressures. With regard to cholesterol levels there is still high in spite of the statins. We can go up on the dose. We can recheck in about 3 months. If still high, then consider Zetia. Beyond that, will need Repatha or Praluent. We discussed about these options. Strongly encouraged weight loss. Follow-up in 6 months. Orders: Orders Lipid Panel 3 Months E78.5 - Hyperlipidemia, unspecified Liver Panel 3 Months I25.10 - Atherosclerotic heart disease of council coronary artery without angina pectoris Medications: New rosuvastatin (Crestor) 40 mg PO DAILY 90 tabs 3RF amlodipine 5 mg PO DAILY 90 tabs 3RF Coding Level of Care Code Est Pt Level 4 (35317) Diagnoses Atherosclerotic cardiovascular disease I25.10 Essential hypertension I10 Other hyperlipidemia E78.49 Hyperlipidemia type: other hyperlipidemia Obesity (BMI 30.0-34.9) E66.9
== END 2023-04-22 11:27 | disposition home or self-care (01) ==
PROVIDERS: PCP Internal Medicine; Visit Provider Internal Medicine
DX: I25.10 Atherosclerotic heart disease of native coronary artery without angina pectoris (principal); I10 Essential (primary) hypertension; E78.49 Other hyperlipidemia; E66.9 Obesity, unspecified
CPT/HCPCS: 99214

== ENCOUNTER → 2023-04-22 10:42 | Outpatient (BNVA) | payer OTHER, SELFPAY | PROVIDERS: PCP Internal Medicine; Visit Provider Internal Medicine ==

== ENCOUNTER 2024-04-05 10:38 | Outpatient (AMB) | payer OTHER, SELFPAY ==
[2024-04-05 10:49] VITALS: BP 138/76; BMI 33.5
--- NOTE | 2024-04-05 10:49 | MHC.PC.OV ---
Vital Signs 04/05/24 10:49 Height 5 ft 7 in Weight 214 lb BMI 33.5 BP 138/76 Blood Pressure Location Lt brachial Position Sitting Intake Visit Reasons: inflammation, redness, and itchiness on shoulders Academic Affairs Coordinator Required: No Accompanied by: Self / Same As Patient Allergies No Known Allergies [No Known Allergies*] Allergy (Verified 04/05/24 10:52) Medication List - Last Reconciled 04/05/24 by Erlin Mishra MD amlodipine 5 mg PO DAILY lorazepam 0.5 mg PO TID PRN rosuvastatin (Crestor) 40 mg PO DAILY Tobacco use date assessed: 04/05/24 Dental Screening Dental Screen Date: 04/05/24 Did you have a dental visit in the last 12 months?: Yes Did you have a dental problem in the last 6 months where you did not have access to dental care?: No Was dental information given to patient?: Patient has dentist HPI inflammation, redness, and itchiness on shoulders HPI Details pruritic rash on upper arms for a few months PFSH Medical History Atherosclerotic cardiovascular disease Hyperlipidemia Hyperlipidemia Obesity Sleep apnea Surgical History S/P colonoscopy No pertinent past surgical history Family History Father Gastric cancer Heart attack Colon cancer Mother Heart disease Brother Heart attack Social History Housing: House Alcohol intake: current Alcohol intake frequency: a few times a month Patient Tobacco Use Status: Former Tobacco user e-Cigarette/Vaping Use: Never Used Second Hand Smoke Exposure: No service: No Current occupational status: employed 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 1. Little interest or pleasure in doing things: not at all 2. Feeling down, depressed, or hopeless: not at all 3. Trouble falling or staying asleep, or sleeping too much: not at all 4. Feeling tired or having little energy: not at all 5. Poor appetite or overeating: not at all 6. Feeling bad about yourself - or that you are a failure or have let yourself or your family down: not at all 7. Trouble concentrating on things, such as reading the newspaper or watching television: not at all 8. Moving or speaking so slowly that other people could have noticed. Or the opposite - being so fidgety or restless that you have been moving around a lot more than usual: not at all 9. Thoughts that you would be better off or of hurting yourself in some way: not at all Total score: 0 Depression Screening Interpretation: Negative Depression Screening Done: Yes Source: Developed by Drs. Nemesio Melvin, Nicole Trent, Can Tong and colleagues, with an educational ike from [employer] [place]. Thrive Questionnaire Date Thrive assessed: 04/05/24 I am a: Patient What is your living situation today?: I have a steady place to live Within the past 12 months, did the food you bought not last and you didn't have the money to get more?: Never true Within the past 12 months, did you worry whether your food would run out before you got money to buy more?: Never true Do you have trouble paying for medicines?: No Do you have trouble getting transportation to medical appointments?: No Do you have trouble paying your heating and electricity bill?: No Do you have trouble taking care of your child, family member or friend?: No Do you have trouble with day-to-day activities such as bathing, preparing meals, shopping, managing finances, etc.?: No Are you currently unemployed and looking for a job?: No Are you interested in more education?: No Currently or been in a relationship where the following occur: No concerns reported THRIVE Score: 0 AUDIT C Alcohol Use Questionnaire (AUDIT-C) 1. How often do you have a drink containing alcohol?: Never Total Score: 0 APOLINAR-7 AMB Questionnaire APOLINAR-7 Date APOLINAR - 7 assessed: 04/05/24 Feeling nervous, anxious, or on edge: 0 = Not at all Not being able to stop or control worryin = Not at all Worrying too much about different things: 0 = Not at all Trouble relaxin = Not at all Being so restless that it is hard to sit still: 0 = Not at all Becoming easily annoyed or irritable: 0 = Not at all Feeling afraid as if something awful might happen: 0 = Not at all Total APOLINAR-7 score (0-4 normal; 5-9 mild; 10-14 moderate; 15-21 severe): 0 Source: Developed by Drs. Nemesio Melvin, Nicole Trent, Can Tong and colleagues, with an educational ike from [employer] [place]. Review of Systems Const Denies chills, Denies headache(s) and Denies weight loss ENT Denies headache(s) Card Denies chest pain, Denies syncope, Denies irregular heart rhythm and Denies dyspnea Resp Denies chest congestion, Denies cough and Denies dyspnea GI Denies abdominal pain, Denies change in stool character, Denies nausea and Denies vomiting Musc Denies deformity and Denies joint swelling Neuro Denies syncope and Denies headache(s) Physical exam (Primary Care) Vital Signs: Last Vital Signs BP 138/76 04/05/24 10:49 BMI result Body Mass Index 33.5 Tobacco/Smoking Status: Tobacco use Status Tobacco use date assessed 04/05/24 04/05/24 10:54 Patient Tobacco Use Status Former Tobacco user 04/05/24 10:49 e-Cigarette/Vaping Use Never Used 04/05/24 10:49 PHQ-9: PHQ-9 Score PHQ-9: Total score 0 04/05/24 10:49 Depression Screening Interpretation: Negative Thrive Assessment: Date of Thrive Assessment Date Thrive assessed 04/05/24 04/05/24 10:49 Currently or been in a relationship where the following occur: No concerns reported Const General: cooperative, comfortable, no acute distress and alert Neck Neck: Yes no lymphadenopathy Thyroid: Thyroid normal Resp Effort & Inspection: normal respiratory effort Auscultation: clear to auscultation bilaterally Percussion: percussion normal Cardio Jugular venous distension: no JVD Palpation: normal PMI Rate: regular rate Rhythm: regular rhythm Heart sounds: S1 normal heart sound present and S2 normal heart sound present GI Inspection: Yes normal to inspection Palpation (GI): No hepatosplenomegaly present Skin Other: contact dermatitis on upper arms Extrem General: Yes no clubbing, cyanosis or edema Office Procedures Flu Questionnaire Does the patient have a severe egg allergy?: No Immunizations Fluarix Triv [id number] (PF) 45 mcg (15 mcg x 3)/0.5 mL IM syringe Performing Provider: Erlin Mishra MD [facility] Documented (not given) by: FRANNIE Olvera on 04/05/24 10:55 Reason Not Given: Patient Refused Coding Level of Care Code Est Pt Level 3 (33837) Diagnoses Contact dermatitis L25.9 Assessment & Plan Assessment & Plan (1) Contact dermatitis: Code(s): L25.9 - Unspecified contact dermatitis, unspecified cause Category: Medical Plan: rx sent Orders: Orders Influenza [id number] Immunization Today Z23 - Encounter for immunization Medications: New triamcinolone acetonide 0.5% 1 appl topical TID 15 grams 3RF methylprednisolone (Medrol (Frank)) PO PER PKG DIR 21 ea 0RF
== END 2024-04-05 11:01 | disposition home or self-care (01) ==
PROVIDERS: PCP Internal Medicine; Visit Provider Internal Medicine
DX: L25.9 Unspecified contact dermatitis, unspecified cause (principal); Z23 Encounter for immunization

== ENCOUNTER → 2024-04-05 10:38 | Outpatient (BNVA) | payer OTHER, SELFPAY | PROVIDERS: PCP Internal Medicine; Visit Provider Internal Medicine | DX: L25.9 Unspecified contact dermatitis, unspecified cause (principal); Z28.21 Immunization not carried out because of patient refusal | CPT/HCPCS: 90471; 96127 ==

== ENCOUNTER 2024-09-05 06:19 | Outpatient (REF) | payer OTHER, SELFPAY ==
--- OUTSIDE RECORDS SUMMARY | 2024-09-05 06:23 | XMS_ITS | Patient Health Record ---
Author Organization [facility] Address [address] [place] [address] Care Team Providers Care Fire Management Specialist Name Role Phone GIUSEPPE ALMANZA Unavailable Allergies No Known Allergies Reason For Referral Reason eval and treat Diagnosis 1 Rash (R21) Referral Organization [facility] melissa Referring Provider First Name STEVIE Referring Provider Last Name RAIZA Referring Provider Speciality Nurse Prac deborah Referred Provider Specialty Dermatology Referral Priority Routine Referral Appointment Date 02/18/2024 Medications Medication SIG (Take, Route, Frequency, Duration) Notes Start Date End Date Status Clobetasol Propionate 0.05 % 1 application Externally Twice a day for 10 days 02/18/2024 Active Rosuvastatin Calcium 40 MG TAKE 1 TABLET BY MOUTH EVERY DAY Oral for 90 Days Active amLODIPine Besylate 5 MG TAKE 1 TABLET B Y MOUTH EVERY DAY Oral for 90 Days Active Social History Tobacco Use: Social History Observation Description Date Details (start date - stop date) Former Smoker NA - NA Tobacco Control (Standard) Question Answer Notes Tobacco use: Former smoker Vital Signs Height 67 in 02/18/2024 Patient Reported High Blood Pressure Patient Reported Normal Temperature Weight 207 lbs 02/18/2024 Patient Reported High Blood Pressure Patient Reported Normal Temperature BMI 32.42 kg/m2 02/18/2024 Patient Reported High Blood Pressure Patient Reported Normal Temperature Encounters Encounter Location Date Provider Diagnosis [facility] [address] [place] [address] 02/18/2024 GIUSEPPE ALMANZA Rash R21 Assessments Encounter Date Diagnosis (ICD Code) Assessment Notes Treatment Notes Treatment Clinical Notes Section Notes 02/18/2024 Rash (ICD-10 - R21) TREATMENT PLAN This patient reports a rash. The rash is from an unknown etiology. Etiologies include but are not limited to contact dermatitis, virus, bacterial infection, psoriasis, eczema, medication, etc. We do not have all detailed information on recent new contacts, allergens, soaps, detergents, clothes, pets, travels, etc. The symptoms are nonspecific and this form of medical care cannot provide definitive diagnostic evaluation for the symptoms. We will offer temporary treatment until the patient can be evaluated in-person. 1. We can empirically offer elevated potency topical steroids. We can also offer oral steroids if desired (medrol, prednisone). Be aware if your symptom is only local, topical steroids will offer less total body side effects (hunger, anxiety, weight gain, sleeplessness, etc). Can also sheepskin pickler over the counter topical hydrocortisone 1% (if not allergic). Take diphenhydramine 25mg as needed for rash/itch. 2. Please see your PCP or a spool winder to evaluate the rash. 02/18/2024 Other Follow the treatment plan as indicated by the provider. Take any medications as prescribed. If you have any questions about your prescription, ask the pharmacist. Call 911 anytime you think you may need emergency care. For example, call if:You have severe trouble breathing.You have a seizure.Call your doctor now or seek immediate medical care if:You have trouble breathing.You have a fever with a stiff neck or a severe headache.You have pain or pressure in your chest or belly.You have a fever or cough that returns after getting better.You feel very sleepy, dizzy, or confused.You are not urinating.You have severe muscle pain.You have severe weakness, or you are unsteady.You have medical conditions that are getting worse.Watch closely for changes in your health, and be sure to contact your doctor if:You do not get better as expected.You are having a problem with your medicine. Risks, benefits, and side effects of medications (if any) discussed with patient, who agreed to the treatment plan.Patient's condition was stable at the end of the televisit. Follow-up instructions provided, including:Scheduling next appointmentMonitoring symptomsAdhering to treatment planContacting clinic with concernsPatient understood and agreed to comply with the follow-up plan. Plan Of Treatment No Information Insurance Providers Payer Name Payer Address Payer Phone Subscriber Number Group Number Insured Name Patient Relationship to Insured Coverage Start Date Coverage End Date [facility] [employer] [address] [address] [place] [phone] [id number] Richy Yao Self - patient is the insured Medical (General) History Medical History History ICD Code cholesterol HTN
--- OUTSIDE RECORDS SUMMARY | 2024-09-05 06:23 | XMS_ITS ---
Author Organization [facility] Address [address] [place] [address] Care Team Providers Care Chief Technician X Ray Name Role Phone GIUSEPPE ALMANZA Unavailable Allergies No Known Allergies Reason For Referral Reason eval and treat Diagnosis 1 Rash (R21) Referral Organization [facility] melissa Referring Provider First Name STEVIE Referring Provider Last Name RAIZA Referring Provider Speciality Nurse Prac deborah Referred Provider Specialty Dermatology Referral Priority Routine Referral Appointment Date 02/18/2024 REASON FOR VISIT Skin / Rash / Acne, Patient requesting service from promotional campaign other_insurance Medications Medication SIG (Take, Route, Frequency, Duration) [...] smoker Vital Signs Height 67 in 02/18/2024 Weight 207 lbs 02/18/2024 BMI 32.42 kg/m2 02/18/2024 Patient Reported High Blood PressurePatient Reported Normal Temperature Encounters Encounter Location Date Provider Diagnosis [facility] [address] [place] [address] 02/18/2024 GIUSEPPE ALMANZA Rash R21 Assessments Encounter [...] anxiety, weight gain, sleeplessness, etc). Can also seed cone picker over the counter topical hydrocortisone 1% (if not allergic). Take diphenhydramine 25mg as needed for rash/itch. 2. Please see your PCP or a mechanical technical service specialist to evaluate the rash. 02/18/2024 Other Follow [...] with the follow-up plan. Plan Of Treatment Medication Medication Name Sig Start Date Stop Date Notes Clobetasol Propionate 0.05 % 1 applicati on Externally Twice a day for 10 days 02/18/2024 Treatment Notes Assessment Notes Rash TREATMENT PLAN This patient reports a rash. [...] anxiety, weight gain, sleeplessness, etc). Can also seed cone picker over the counter topical hydrocortisone 1% (if not allergic). Take diphenhydramine 25mg as needed for rash/itch. 2. Please see your PCP or a mechanical technical service specialist to evaluate the rash. Other Follow the treatment plan as indicated [...] are having a problem with your medicine. Referrals Referral Date Details 02/18/2024 02/18/2024, eval and treat Next Appt Details Follow Up: PCP, Reason: Progress Notes * Ta RAIOB:06/09 (53 yo M)Acc No.[id number]:02/18/2024 Patient:?Richy RAI Provider:?GIUSEPPE ALAMNZA MD :1970???Age:53 Y???Sex:Male Silvestre e:02/18/2024 Phone: Address:[address] [place] [address] SEAN [id number] Subjective: * Chief Complaints: * ???Skin / Rash / AcnePatient requesting service from promotional campaign other_insurance * HPI: ???TeleVisit Consent:?Patient's identification was confirmed and they were instructed that this visit is based on visual, audio information in addition to previous medical notes and diagnostics. As well it relies on the patient for information related to their physical well being, diagnosis and treatment. The patient acknowledges that they are not being recorded today, and they do not have permission to record this visit either. Patient verbalized understanding to all of the above. VIDEO VISIT CONDUCTED OF A 53 Y/O MALE REPORTS A RASH ON ARMS AND SHOULDER FEELS ITCHY X SEVERAL MONTHS. * ROS:?All Other Systems:?Review of Systems (ROS)?See HPI for details.? * Medical History:? * Surgical History:?Denies Pas t Surgical History * Hospitalization/Major Diagno stic Procedure:?Denies Past Hospitalization * Family History:? Heart Disease: Parent. * Social History:?Tobacco Use:?Tobacco Control (Standard)?Tobacco use:?Former smoker.?Drugs/Alcohol:?Do you drink alcohol?: Yes More Than 6 Drinks Monthly Social. * Medications:?TakingamLODIPin e Besylate 5 MG Tablet TAKE 1 TABLET BY MOUTH EVERY DAY Oral Rosuvastatin Calcium 40 MG Tablet TAKE 1 TABLET BY MOUTH EVERY DAY Oral Medication List reviewed and reconciled with the patientTaking amLODIPine Besylate 5 MG Tablet TAKE 1 TABLET BY MOUTH EVERY DAY Oral Taking Rosuvastatin Calcium 40 MG Tablet TAKE 1 TABLET BY MOUTH EVERY DAY Oral Medication List reviewed and reconciled with the patient * Allergies:?N.K.D.A.no[Allerg ies Verified] Objective: * Vitals:?Ht: 67 in, Wt:207lbs , BMI:32.42Index. Patient Reported High Blood Pressure Patient Reported Normal Temperature. * Examination: ???General Examination: ?GENERAL APPEARANCE:?in no acute distress.?EARS:?hearing grossly intact.?NEUROLOGIC:?alert and oriented , speech clear.?PSYCH:?mood/affect normal, understands directions.? * Physical Examination:?+ SMALL SKIN IRRITATION LITTLE BUMP WITH REDNESS, MILDLY RAISIED NON OOZING. CONSISTENT WITH POSSIBLE ECZEMA. Assessment: * Assessment: 1.?Rash - R21 (Primary)??? Plan: * Treatment: 2.?Others? Notes: Follow the treatment plan as indicated by the provider. Take any medications as prescribed. If you have any questions about your prescription, ask the pharmacist. Call 911anytime you think you may need emergency care. For example, call if:You have severe trouble breathing.You have a seizure.Call your doctor nowor seek immediate medical care if:You have trouble [...] expected.You are having a problem with your medicine.?? Clinical Notes:Risks, benefits, and side effects of medications (if any) discussed with patient, who agreed to the treatment plan.Patient's condition was stable at the end of the televisit. Follow-up instructions provided, including:Scheduling next appointmentMonitoring symptomsAdhering to treatment planContacting clinic with concernsPatient understood and agreed to comply with the follow-up plan.?? * Procedure Codes:?S9088 [facility] / CC Processing [id number] Office Visit, Est Pt., Level 3 Virtual Visit, Modifiers: GQ * Follow Up:?PCP * Billing Information: * Visit Code:? S9083 [facility]. * Procedure Codes:? S9088 [facility]. MAGGY Marie / CC Processing Fee. [id number] Office Visit, Est Pt., Level 3 Virtual Visit. Modifiers: GQ * Sign off status: Completed true * Provider:?GIUSEPPE ALMANZA MD Da te:?02/18/2024 Generated for Lázaro cabello/Olu/eTransmitting on:?09/05/2024 06:22 AM EDT History and Physical Notes * Physical Examination Category Sub-Category Detail Notes Section Note s + SMALL SKIN IR RITATION LITTLE BUMP WITH REDNESS, MILDLY RAISIED NON OOZING. CONSISTENT WITH POSSIBLE ECZEMA Examination Category Sub-Category Detail Notes Category Not es General Examination GENERAL APPEARANCE: in no acute di stress EARS: hearing grossly inta ct NEUROLOGIC: alert and oriented , speech clear PSYCH: mood/affect normal, understands directions Consultation Request Notes Referral Date Referring Provider Referred Provider Not es 02/18/2024 STEVIE EASTMAN eval and treat
[2024-09-05 07:46] LABS: Alanine Aminotransferase 41 U/L (0-40); Albumin Level 4.1 g/dL (3.5-5.0); Alkaline Phosphatase 59 U/L (39-117); Anion Gap 13 (12-20); Aspartate Amino Transferase 24 U/L (5-37); Bilirubin Direct 0.1 mg/dL (0.0-0.5); Bilirubin Total 0.4 mg/dL (0.0-1.0); Blood Urea Nitrogen 9 mg/dL (9-16); Calcium 9.5 mg/dL (8.4-10.2); Carbon Dioxide 23 mmol/L (22-29); Chloride 111 mmol/L (96-108); Cholesterol 142 mg/dL (<200); Estimated Glomerular Filt Rate > 60; Glucose Random 93 mg/dL (60-115); HDL Cholesterol 35 mg/dL (>40); LDL Cholesterol Calculated 79 mg/dL (<100); Sodium 143 mmol/L (135-145); Total Protein 6.9 g/dL (6.5-8.0); Triglycerides 141 mg/dL (<150)
== END 2024-09-05 06:20 | disposition home or self-care (01) ==
LOC: HO.LAB 06:19
PROVIDERS: PCP Internal Medicine; Visit Provider Nurse Practitioner Family
DX: E78.49 Other hyperlipidemia (principal)
CPT/HCPCS: 36415; 80048; 80061; 80076

== ENCOUNTER 2024-09-07 09:25 | Outpatient (AMB) | payer OTHER, SELFPAY ==
[2024-09-07 09:44] VITALS: BP 140/72; PULSE 62; BMI 33.2
--- NOTE | 2024-09-07 09:44 | A.OFFVIS_ITS ---
Vital Signs 09/07/24 09:44 Height 5 ft 7 in Weight 212 lb 1.355 oz BMI 33.2 BP 140/72 H Blood Pressure Location Lt brachial Position Sitting Pulse 62 Pulse Source Monitor Intake Visit Reasons: 6 Month Follow up r/s 08/01/24 Drafter Cartographic Required: No Accompanied by: Self / Same As Patient Allergies No Known Allergies [No Known Allergies*] Allergy (Verified 04/05/24 10:52) Medication List - Last Reconciled 09/07/24 by Johnson Chin MD amlodipine 5 mg PO DAILY lorazepam 0.5 mg PO TID PRN methylprednisolone (Medrol (Frank)) PO PER PKG DIR rosuvastatin 40 mg PO DAILY triamcinolone acetonide 0.5% 1 appl topical TID HPI Comments Details: Richy returns for follow-up. Due to strong family history of coronary disease, he underwent calcium scoring CT scan which was positive. Since last seen, he states he feels good. No cardiac symptoms whatsoever. Unlimited physical capacity without any limitations. 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, [employer] Current occupational exposures/hazards: No Cognitive needs: No Hearing needs: No Vision needs: Yes (glasses) Review of Systems Const Denies chills, Denies fatigue, Denies fever(s), Denies frequent falls, Denies weakness, Denies weight gain and Denies weight loss ENT Denies dizziness Card Denies chest pain, Denies leg edema, Denies lightheadedness, Denies palpitation s, Denies dyspnea and Denies dyspnea on exertion Resp Denies cough, Denies dyspnea and Denies dyspnea on exertion GI Denies hematochezia Musc Denies abnormal gait, Denies muscle weakness, Denies numbness, Denies radiating pain into limb and Denies tingling Neuro Denies abnormal gait, Denies dizziness, Denies frequent falls, Denies numbness, Denies tingling and Denies weakness Endo Denies fatigue and Denies palpitations Physical Exam Vital Signs: Last Vital Signs Pulse 62 09/07/24 09:44 BP 140/72 H 09/07/24 09:44 BMI result Body Mass Index 33.2 Const General: comfortable and no acute distress Orientation/consciousness: patient oriented x3 HEENT Other: Unremarkable Head: Yes normal to inspection Neck Neck: Yes normal visual inspection Chest Chest palpation & inspection: normal inspection of the chest Resp Auscultation: clear to auscultation bilaterally Cardio Palpation: normal PMI Heart sounds: S1 normal heart sound present, S2 normal heart sound present, no gallops, no murmurs and no rubs GI Palpation (GI): Soft to palpation Back/Spine/Pelvis Other: unremarkable Skin General skin exam: no rashes or lesions noted Neuro General: patient oriented x3 Extrem General: Yes normal to inspection Psych Mental Status: mental status grossly normal Office Procedures EKG Details: EKG with underlying sinus rhythm at 62/Min; nonspecific T-wave changes in the inferior leads; [place]. [id number], Complete Assessment & Plan Assessment & Plan (1) Atherosclerotic cardiovascular disease: Code(s): I25.10 - Atherosclerotic heart disease of [place] coronary artery without angina pectoris Category: Medical (2) Essential hypertension: Code(s): I10 - Essential (primary) hypertension Category: Medical (3) Hyperlipidemia: Code(s): E78.5 - Hyperlipidemia, unspecified Category: Medical Qualifiers: Hyperlipidemia type: other hyperlipidemia Qualified Code(s): E78.49 - Other hyperlipidemia (4) Obesity (BMI 30.0-34.9): Code(s): E66.9 - Obesity, unspecified Category: Medical Plan Cardiac testing reviewed. Calcium scoring CT-2021- Total score is 292, and calcific plaque is seen in circumflex most predominantly, but also seen in the LAD and right coronary artery. In the exercise stress test, he was able to exercise for 10 minutes on Tony protocol and reached 92% of max predicted heart rate. No angina or EKG evidence of ischemia. He had a hypertensive blood pressure response. Perfusion imaging unremarkable. Overall, evidence of coronary disease but stable. Clinically no symptoms whatsoever. Mainly risk factor modification including weight loss, aggressive management of blood pressure and cholesterol. Blood pressure is borderline. Advised him to do home readings. If it consistently stays in this range, then may go up on the amlodipine dosing. LDL is improved significantly on statins. Again weight loss will help further. Follow-up in one year. In the interim, he will call with concerns. Discussion Notes In discussing management, I advised the patient to regularly monitor his blood pressure at home to provide more reliable data for treatment adjustments. The benefits of potentially increasing his amlodipine dosage to 10 mg if consistent readings of 140 mmHg were noted were explained. The patient was informed of the improvement in his lipid levels from 199 mg/dL to 79 mg/dL and the importance of maintaining current lifestyle changes. Follow-up instructions were related to monitored outcomes and symptom changes. The patient demonstrated understanding and agreed with the ongoing management plan. Patient was informed and verbally consented to the use of an ambient scribe for clinic note documentation during this visit. Patient Instructions: - Check your blood pressure at home regularly. - Record the readings and let me know if they are often at or above 140 mmHg. - Continue with the current medication, diet, and exercise plan to keep cholesterol levels in check. - Keep a record of any new symptoms or changes in your health. - Follow up in one year if you have no new symptoms, but do not exceed this timeframe. - Contact me if you have any concerns or issues with your current treatment. Coding Level of Care Code Est Pt Level 4 (70696) Diagnoses Atherosclerotic cardiovascular disease I25.10 Essential hypertension I10 Other hyperlipidemia E78.49 Hyperlipidemia type: other hyperlipidemia Obesity (BMI 30.0-34.9) E66.9 CPT Codes EKG - CPT: 78215-Dnnusleundtigdfos, Complete ([id number])
--- OUTSIDE RECORDS SUMMARY | 2024-09-07 10:07 | XMS_ITS ---
Author Organization [facility] Address [address] [place] [address] Care Team Providers Care Egg Trayer Name Role Phone GIUSEPPE ALMANZA Unavailable Allergies No Known Allergies Reason For Referral Reason eval and treat Diagnosis 1 Rash (R21) Referral Organization [facility] melissa Referring Provider First Name STEVIE Referring [...] Temperature Encounters Encounter Location Date Provider Diagnosis [facility] [address] [place] [address] 02/18/2024 GIUSEPPE ALMANZA Rash R21 Assessments Encounter [...] anxiety, weight gain, sleeplessness, etc). Can also merchandise pickup/receiving associate over the counter topical hydrocortisone 1% (if not allergic). Take diphenhydramine 25mg as needed for rash/itch. 2. Please see your PCP or a busboy to evaluate the rash. 02/18/2024 Other Follow [...] anxiety, weight gain, sleeplessness, etc). Can also merchandise pickup/receiving associate over the counter topical hydrocortisone 1% (if not allergic). Take diphenhydramine 25mg as needed for rash/itch. 2. Please see your PCP or a busboy to evaluate the rash. Other Follow the [...] Notes * Ta RAIOB:[birth year]/09 (53 yo M)Acc No.[id number]:02/18/2024 Patient:?Richy RAI Provider:?GIUSEPPE ALMANZA MD :[id number]???Age:53 Y???Sex:Male Silvestre e:02/18/2024 Phone: Address:[address] [place] [address] SE[place] [id number] Subjective: * Chief Complaints: * ???Skin / [...] the follow-up plan.?? * Procedure Codes:?S9088 [facility] / CC Processing [id number] Office Visit, Est Pt., Level 3 Virtual Visit, Modifiers: GQ * Follow Up:?PCP * Billing Information: * Visit Code:? S9083 [facility]. * Procedure Codes:? S9088 [facility]. MAGGY Marie / CC Processing Fee. [id number] Office Visit, Est Pt., Level 3 Virtual Visit. Modifiers: GQ * Sign off status: Completed true * Provider:?GIUSEPPE ALMANZA MD Da te:?02/18/2024 Generated for Lázaro cabello/Olu/eTransmitting on:?09/07/2024 10:07 AM EDT History and Physical Notes * [...]
--- OUTSIDE RECORDS SUMMARY | 2024-09-07 10:07 | XMS_ITS | Patient Health Record ---
Author Organization [facility] Address [address] [place] [address] Care Team Providers Care Wrapper Operator Name Role Phone GIUSEPPE ALMANZA Unavailable Allergies No Known Allergies Reason For Referral Reason eval and treat Diagnosis 1 Rash (R21) Referral Organization [facility] melissa Referring Provider First Name STEVIE [...] Temperature Encounters Encounter Location Date Provider Diagnosis [facility] [address] [place] [address] 02/18/2024 GIUSEPPE ALMANZA Rash R21 Assessments Encounter [...] anxiety, weight gain, sleeplessness, etc). Can also case picker over the counter topical hydrocortisone 1% (if not allergic). Take diphenhydramine 25mg as needed for rash/itch. 2. Please see your PCP or a chocolate finisher to evaluate the rash. 02/18/2024 Other Follow [...] Insured Coverage Start Date Coverage End Date [facility] [employer] [address] [address] [place] [address] [id number] Richy Yao Self - patient is the insured Medical (General) History Medical History History ICD Code cholesterol HTN
== END 2024-09-07 10:01 | disposition home or self-care (01) ==
LOC: HO.HCS 09:26
PROVIDERS: Visit Provider Internal Medicine
DX: I25.10 Atherosclerotic heart disease of native coronary artery without angina pectoris (principal); I10 Essential (primary) hypertension; E78.49 Other hyperlipidemia; E66.9 Obesity, unspecified
CPT/HCPCS: 93010; 99214

== ENCOUNTER → 2024-09-07 09:25 | Outpatient (BNVA) | payer OTHER, SELFPAY | PROVIDERS: Visit Provider Internal Medicine | DX: I25.10 Atherosclerotic heart disease of native coronary artery without angina pectoris (principal); I10 Essential (primary) hypertension; E78.49 Other hyperlipidemia; E66.9 Obesity, unspecified; Z68.33 Body mass index [BMI] 33.0-33.9, adult | CPT/HCPCS: 93005 ==

== ENCOUNTER 2024-11-10 14:52 | Outpatient (AMB) | payer OTHER, SELFPAY ==
--- NOTE | 2024-11-10 14:53 | A.OFFPC_ITS ---
Vital Signs 11/10/24 14:54 Height 5 ft 7 in Weight 200 lb 4 oz BMI 31.4 BP 136/78 Blood Pressure Location Lt brachial Position Sitting Pulse 92 Pulse Source Pulse Oximeter Temp 97.3 F Temp Source Temporal Artery Scan Pulse Oximetry (%) 96 Oxygen Delivery Method Room Air Intake Visit Reasons: NELLI DR Mishra/ annual exam Allergies No Known Allergies (No Known Allergies*) Allergy (Verified 12/04/24 21:14) Medication List - Last Reconciled 12/04/24 by JODY Cade amlodipine 5 mg PO DAILY lorazepam 0.5 mg PO TID PRN rosuvastatin 40 mg PO DAILY triamcinolone acetonide 0.5% 1 appl topical TID Tobacco use date assessed: 11/10/24 Dental Screening Dental Screen Date: 11/10/24 Did you have a dental visit in the last 12 months?: Yes Did you have a dental problem in the last 6 months where you did not have access to dental care?: No Was dental information given to patient?: Patient has dentist HPI NELLI DR Mishra/ annual exam HPI Details The patient is a 54-year-old male presenting with a transition of care appointment focusing on chronic condition management. The patient used to see Dr. Mishra, who retired 4 months ago. The patient has a history of coronary artery disease, which is primarily familial, as his younger brother experienced a cardiac event at the age of 49. The patient has not experienced chest pain and underwent a stress test, which led to the discovery of elevated cholesterol levels. He is currently on rosuvastatin to manage his hyperlipidemia, with a noted improvement in LDL levels from 229 mg/dL to 142 mg/dL. The patient also has a history of hypertension, which he monitors regularly. He has made lifestyle changes, including reducing caffeine intake and moderating alcohol consumption, to manage his blood pressure. The patient reports a right rotator cuff tear and a torn biceps, initially managed with physical therapy, but he is considering surgical intervention due to persistent symptoms. He also has calcific tendinitis in the left shoulder, causing daily discomfort and affecting his sleep. Preventative care includes regular colonoscopies due to a family history of colorectal issues, although there is concern about the timing of the next procedure. 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 1. Little interest or pleasure in doing things: not at all 2. Feeling down, depressed, or hopeless: not at all 3. Trouble falling or staying asleep, or sleeping too much: not at all 4. Feeling tired or having little energy: not at all 5. Poor appetite or overeating: not at all 6. Feeling bad about yourself - or that you are a failure or have let yourself or your family down: not at all 7. Trouble concentrating on things, such as reading the newspaper or watching television: not at all 8. Moving or speaking so slowly that other people could have noticed. Or the opposite - being so fidgety or restless that you have been moving around a lot more than usual: not at all 9. Thoughts that you would be better off or of hurting yourself in some way: not at all Total score: 0 Depression Screening Interpretation: Negative Depression Screening Done: Yes 58911 - PHQ-9 Billing: Yes Source: Developed by Drs. Nemesio Melvin, Nicole Ternt, Can Tong and colleagues, with an educational ike from [employer]. Thrive Questionnaire Date Thrive assessed: 11/05/24 I am a: Patient What is your living situation today?: I have a steady place to live Within the past 12 months, did the food you bought not last and you didn't have the money to get more?: Never true Within the past 12 months, did you worry whether your food would run out before you got money to buy more?: Never true Do you have trouble paying for medicines?: No Do you have trouble getting transportation to medical appointments?: No Do you have trouble paying your heating and electricity bill?: No Do you have trouble taking care of your child, family member or friend?: No Do you have trouble with day-to-day activities such as bathing, preparing meals, shopping, managing finances, etc.?: No Are you currently unemployed and looking for a job?: No Are you interested in more education?: No Please select the resources that you would like help with: None Currently or been in a relationship where the following occur: No concerns reported THRIVE Score: 0 AUDIT C Alcohol Use Questionnaire (AUDIT-C) 1. How often do you have a drink containing alcohol?: 2-4 times a month 2. How many drinks containing alcohol do you have on a typical day when you are drinking?: 7 to 9 3. How often do you have six or more drinks on one occasion?: Monthly Total Score: 7 APOLINAR-7 AMB Questionnaire APOLINAR-7 Date APOLINAR - 7 assessed: 11/10/24 Feeling nervous, anxious, or on edge: 0 = Not at all Not being able to stop or control worryin = Not at all Worrying too much about different things: 0 = Not at all Trouble relaxin = Not at all Being so restless that it is hard to sit still: 0 = Not at all Becoming easily annoyed or irritable: 0 = Not at all Feeling afraid as if something awful might happen: 0 = Not at all Total APOLINAR-7 score (0-4 normal; 5-9 mild; 10-14 moderate; 15-21 severe): 0 Source: Developed by Drs. Nemesio Melvin, Nicole Trent, Can Tong and colleagues, with an educational ike from [employer]. APOLINAR-7 Assessment Billing APOLINAR-7 Assessment Tool: APOLINAR-7 Assessment 47018 Review of Systems Const Reports difficulty sleeping (Shoulder pain) and Denies headache(s) Eyes Denies loss of vision ENT Denies vertigo, Denies dizziness, Denies headache(s) and Denies sore throat Card Denies chest pain, Denies leg edema and Denies lightheadedness Resp Denies cough, Denies hemoptysis and Denies wheezing GI Denies abdominal pain, Denies melena, Denies constipation, Denies diarrhea and Denies vomiting Denies dysuria, Denies urinary frequency and Denies urinary urgency Musc Reports arthralgias (Bilateral shoulder), Denies joint swelling, Denies numbness and Denies tingling Neuro Denies Abnormal speech present, Denies behavioral changes, Denies vertigo, Denies dizziness, Denies headache(s), Denies loss of vision, Denies memory loss, Denies numbness and Denies tingling Psych Denies anxiety, Denies behavioral changes, Denies depression, Denies memory loss and Denies panic attacks Vishal/Lymph Denies easy bleeding and Denies easy bruising Aller/Immun Denies wheezing Physical exam (Primary Care) Vital Signs: Last Vital Signs Temp 97.3 F 11/10/24 14:54 Pulse 92 11/10/24 14:54 BP 136/78 11/10/24 14:54 Pulse Ox 96 11/10/24 14:54 Oxygen Delivery Method Room Air 11/10/24 14:54 BMI result Body Mass Index 31.4 Tobacco/Smoking Status: Tobacco use Status Tobacco use date assessed 11/10/24 11/10/24 14:58 Patient Tobacco Use Status Former Tobacco user 11/10/24 14:58 e-Cigarette/Vaping Use Never Used 11/10/24 14:58 PHQ-9: PHQ-9 Score PHQ-9: Total score 0 11/10/24 15:35 Depression Screening Interpretation: Negative Thrive Assessment: Date of Thrive Assessment Date Thrive assessed 11/05/24 11/10/24 14:58 Currently or been in a relationship where the following occur: No concerns reported Const General: healthy appearing, no acute distress, alert and awake Nutritional Appearance: well nourished Orientation/consciousness: oriented to person, oriented to place and oriented to time HENMT Ears: TM's normal bilaterally General nose exam: Normal nasal mucous membranes and turbinates present Eyes Conjunctivae: conjunctivae normal Sclerae: sclerae normal Pupils: Equal, round and reactive pupils present Neck Neck: Yes no lymphadenopathy and Yes no JVD Thyroid: Thyroid normal Carotids: no bruits Resp Effort & Inspection: normal respiratory effort and not tachypneic Auscultation: no crackles, no rales, no rhonchi and no wheezes Cardio Rate: regular rate Rhythm: regular rhythm Heart sounds: S1 normal heart sound present, S2 normal heart sound present, no murmurs and normal S1 and S2 GI Palpation (GI): Soft to palpation, nontender, no hepatomegaly and no splenomegaly Auscultation: normal bowel sounds Skin General skin exam: no rashes or lesions noted and dry skin Neuro General: oriented to person, oriented to place and oriented to time Cranial nerves: Yes Equal, round and reactive pupils present Speech: No Abnormal speech present Gait exam (Neuro): Normal gait present Motor exam (neuro): no tremor noted Extrem Right upper extremity: shoulder/upper arm Details: no tenderness and no swelling Left upper extremity: shoulder/upper arm Details: no tenderness and no swelling Right lower extremity: full ROM; no edema Left lower extremity: full ROM; no edema Psych Appearance: grossly normal Mental Status: mental status grossly normal Speech and movement: Normal speech and movement present Affect: normal affect Attitude: cooperative Thought process: Normal thought process present Results Reviewed Results Reviewed: Laboratory Tests 09/05/24 06:41 Sodium 143 Potassium 4.0 Chloride 111 H Carbon Dioxide 23 Anion Gap 13 BUN 9 Creatinine 0.81 Estimated GFR > 60 Random Glucose 93 Calcium 9.5 D Total Bilirubin 0.4 Direct Bilirubin 0.1 AST 24 ALT 41 H Alkaline Phosphatase 59 Total Protein 6.9 Albumin 4.1 Triglycerides 141 Cholesterol 142 LDL Cholesterol, Calc 79 HDL Cholesterol 35 L Coding Level of Care Code Est Pt Level 4 (79321) Diagnoses Essential hypertension I10 Family history of premature CAD Z82.49 Atherosclerotic cardiovascular disease I25.10 Other hyperlipidemia E78.49 Hyperlipidemia type: other hyperlipidemia Obesity (BMI 30.0-34.9) E66.9 Calcific tendonitis of right shoulder M75.31 Calcific tendonitis of left shoulder M75.32 Additional Codes APOLINAR-7 Assessment Billing - APOLINAR-7 Assessment Tool: APOLINAR-7 Assessment 75921 ([id number]) PHQ-9 - 58520 - PHQ-9 Billing: Yes ([id number]) Time Spent (min) 39 Assessment & Plan Assessment & Plan (1) Essential hypertension: Code(s): I10 - Essential (primary) hypertension Category: Medical (2) Family history of premature CAD: Code(s): Z82.49 - Family history of ischemic heart disease and other diseases of the circulatory system Category: Medical (3) Atherosclerotic cardiovascular disease: Code(s): I25.10 - Atherosclerotic heart disease of [place] coronary artery without angina pectoris Category: Medical (4) Hyperlipidemia: Code(s): E78.5 - Hyperlipidemia, unspecified Category: Medical Qualifiers: Hyperlipidemia type: other hyperlipidemia Qualified Code(s): E78.49 - Other hyperlipidemia (5) Obesity (BMI 30.0-34.9): Code(s): E66.9 - Obesity, unspecified Category: Medical (6) Calcific tendonitis of right shoulder: Code(s): M75.31 - Calcific tendinitis of right shoulder Category: Medical (7) Calcific tendonitis of left shoulder: Code(s): M75.32 - Calcific tendinitis of left shoulder Category: Medical Plan The patient will continue on rosuvastatin to manage hyperlipidemia, with a focus on maintaining LDL levels and increasing HDL through omega-3 supplements and CoQ10. For hypertension, the patient is advised to continue monitoring blood pressure and reduce caffeine and alcohol intake to aid in management. Regarding the rotator cuff tear and calcific tendinitis, the patient is considering surgical intervention due to persistent symptoms despite previous physical therapy. Preventative care includes scheduling a colonoscopy due to family histo ry, with a follow-up appointment in four months to review lab results and overall health status. Patient had labs completed on 09/05/2024 that was reviewed with him. His triglycerides was 141, total cholesterol was 142, LDL 79, HDL 35. That shows improvement since starting on the rosuvastatin. The patient previous LDL was 160. Reinforced low salt diet. Continue amlodipine 5 mg daily Continue ibuprofen OTC for shoulder pain. May use warm/cold compress alternating with 20 minutes on intervals Patient was informed and verbally consented to the use of an ambient scribe for clinic note documentation during this visit. Orders: Orders Complete Blood Count Auto Diff 4 Months T78.40XA - Allergy, unspecified, initial encounter, I10 - Essential (primary) hypertension, Z82.49 - Family history of ischemic heart disease and other diseases of the circulatory system, I25.10 - Atherosclerotic heart disease of [place] coronary artery without angina pectoris, E78.49 - Other hyperlipidemia, E66.9 - Obesity, unspecified Comprehensive [place]. Panel Fast 4 Months T78.40XA - Allergy, unspecified, initial encounter, I10 - Essential (primary) hypertension, Z82.49 - Family history of ischemic heart disease and other diseases of the circulatory system, I25.10 - Atherosclerotic heart disease of [place] coronary artery without angina pectoris, E78.49 - Other hyperlipidemia, E66.9 - Obesity, unspecified Lipid Panel 4 Months T78.40XA - Allergy, unspecified, initial encounter, I10 - Essential (primary) hypertension, Z82.49 - Family history of ischemic heart disease and other diseases of the circulatory system, I25.10 - Atherosclerotic heart disease of [place] coronary artery without angina pectoris, E78.49 - Other hyperlipidemia, E66.9 - Obesity, unspecified PSA,Total (Free>4and<10) 4 Months T78.40XA - Allergy, unspecified, initial encounter, I10 - Essential (primary) hypertension, Z82.49 - Family history of ischemic heart disease and other diseases of the circulatory system, I25.10 - Atherosclerotic heart disease of [place] coronary artery without angina pectoris, E78.49 - Other hyperlipidemia, E66.9 - Obesity, unspecified TSH reflex Free T4 4 Months T78.40XA - Allergy, unspecified, initial encounter, I10 - Essential (primary) hypertension, Z82.49 - Family history of ischemic heart disease and other diseases of the circulatory system, I25.10 - Atherosclerotic heart disease of [place] coronary artery without angina pectoris, E78.49 - Other hyperlipidemia, E66.9 - Obesity, unspecified UA CC w/rflx Micro + Cult 4 Months T78.40XA - Allergy, unspecified, initial encounter, I10 - Essential (primary) hypertension, Z82.49 - Family history of ischemic heart disease and other diseases of the circulatory system, I25.10 - Atherosclerotic heart disease of [place] coronary artery without angina pectoris, E78.49 - Other hyperlipidemia, E66.9 - Obesity, unspecified Vitamin D 25-OH Total 4 Months T78.40XA - Allergy, unspecified, initial encounter, I10 - Essential (primary) hypertension, Z82.49 - Family history of ischemic heart disease and other diseases of the circulatory system, I25.10 - Atherosclerotic heart disease of [place] coronary artery without angina pectoris, E78.49 - Other hyperlipidemia, E66.9 - Obesity, unspecified Patient Instructions: Follow up in 4 months
[2024-11-10 14:54] VITALS: BP 136/78; PULSE 92; TEMP 36.3; O2SAT 96; BMI 31.4
--- OUTSIDE RECORDS SUMMARY | 2024-11-10 14:54 | XMS_ITS | Patient Health Record ---
Author Organization [facility] Address [address] [place] [id number] Care Team Providers Care Registry Rn Name Role Phone Danica XAVIER, Erlin Primary Care Provider Boris Díaz Jr Unavailable [phone] Allergies No Known Allergies Reason For Referral No Information Medications Medication SIG (Take, Route, Frequency, Duration) Notes Start Date End Date Status MiraLax (colon prep) 8.3 ounce ((238) grams mixed with Gatorade or Crystal Light orally begin at 5:00 p.m. the day before the procedure for 1 day 10/26/2020 Active Chantix Continuing Month Frank Active LORazepam 0.5 MG as directed Orally PRN Active Simvastatin 20 MG 1 tablet in the even ing Orally Once a day Active Multivitamin Active Ibuprofen PRN Active Immunizations Vaccine Route Administration Date Status Comme nts Influenza Unknown 10/26/2020 Refused Problems Problem Type SNOMED Code ICD Code Onset Dates Problem Status W/U Status Risk Notes Problem [id number] Family history of colon cancer (Z80.0) Active confirmed Problem [id number] Other specified pre-operative examination (Z01.818) Active confirmed Plan Of Treatment Future Test Test Name Order Date COLONOSCOPY 06/14/2015 COLONOSCOPY 10/26/2020 Insurance Providers Payer Name Payer Address Payer Phone Subscriber Number Group Number Insured Name Patient Relationship to Insured Coverage Start Date Coverage End Date MERI ([employer] L) [address] [place] [phone] [id number] ESPERANZA CANTOR Self - patient is the insured Medical (General) History Medical History History ICD Code colonoscopy 09/07/15, hyperplastic polyp, five-year followup 08/29 elevated cholesterol gerd sleep apnea rotator cuff tear, right Surgical History Surgery Date(Month/Year) surgery for sleep apnea 1994
== END 2024-11-10 15:42 | disposition home or self-care (01) ==
DX: I10 Essential (primary) hypertension (principal); Z82.49 Family history of ischemic heart disease and other diseases of the circulatory system; E66.9 Obesity, unspecified; Z68.31 Body mass index [BMI] 31.0-31.9, adult; I25.10 Atherosclerotic heart disease of native coronary artery without angina pectoris; E78.49 Other hyperlipidemia; M75.31 Calcific tendinitis of right shoulder; M75.32 Calcific tendinitis of left shoulder

== ENCOUNTER → 2024-11-10 14:52 | Outpatient (BNVA) | payer OTHER, SELFPAY | DX: I25.10 Atherosclerotic heart disease of native coronary artery without angina pectoris (principal); E78.5 Hyperlipidemia, unspecified; I10 Essential (primary) hypertension; E78.49 Other hyperlipidemia; E66.9 Obesity, unspecified; M75.31 Calcific tendinitis of right shoulder; M75.32 Calcific tendinitis of left shoulder; Z82.49 Family history of ischemic heart disease and other diseases of the circulatory system | CPT/HCPCS: 96127 ==